=== PATIENT | male | born 1985 | race Caucasian/White ===

== ENCOUNTER → 2021-09-09 | Outpatient (CLI) | payer BC ==
[~2021-09-09] MED LIST: NORCO 325 MG-51 TAB PO; ZESTRIL 20MG TA20 MG PO
== END ==
LOC: COL.RAD 12:17
DX: C43.61 Malignant melanoma of right upper limb, including shoulder (principal)

== ENCOUNTER → 2022-05-12 | Outpatient (CLI) | payer BC | LOC: COL.RAD 13:24 | DX: C43.9 Malignant melanoma of skin, unspecified (principal) ==

== ENCOUNTER 2023-06-14 11:06 | Emergency (ER) | payer BC ==
[~2023-06-14] VITALS: Ht 180.3 cm; Wt 104.5 kg
[2023-06-14 12:08] LABS: COLLECTION METHOD CLEAN CATCH
[2023-06-14 12:21] LABS: BASO % 0.2 % (0.0-2.0); EOS % 0.1 % (0.0-4.0); GRAN # 7.6 K/mm3 (1.4-6.5); GRAN % 82.8 % (42.2-75.2); HEMATOCRIT 48.5 % (42.0-52.0); HEMOGLOBIN 16.8 g/dl (13.5-18.0); LYMPH # 0.7 K/mm3 (1.2-3.4); LYMPH % 7.2 % (20.0-51.0); MEAN CELL VOLUME 89 fl (80.0-100.0); MEAN CORPUSCULAR HEMOGLOBIN 31 pg (27-31); MEAN CORPUSCULAR HGB CONC 35 g/dl (33.0-37.0); MEAN PLATELET VOLUME 9.4 fl (7.4-10.4); MONO # 0.9 K/mm3 (0.1-0.6); MONO % 9.5 % (1.7-9.3); PLATELET COUNT 181 K/mm3 (130-400); RED BLOOD COUNT 5.48 M/mm3 (4.20-5.60); REDCELL DISTRIBUTION WIDTH-CV 11.9 % (11.5-14.5)
[2023-06-14 12:27] LABS: ALBUMIN 3.9 gm/dL (3.5-5.0); BILIRUBIN,TOTAL 0.5 mg/dL (0.2-1.2); C-REACTIVE PROTEIN 1.57 mg/dL (0.00-0.50); CALCIUM 8.8 mg/dL (8.4-10.2); CREATININE, serum 0.98 mg/dL (0.72-1.25); POTASSIUM 3.7 mmol/L (3.5-4.5)
[2023-06-14 12:36] LABS: PH 7.5 (5.0-8.5); URINE APPEARANCE Clear (CLEAR/HAZY); URINE BLOOD 1+ (NEGATIVE); URINE COLOR Yellow (YELLOW); URINE GLUCOSE Negative (NEGATIVE); URINE KETONE Negative (NEGATIVE); URINE NITRATE Negative (NEGATIVE); URINE PROTEIN(semi-quant) 2+ (NEGATIVE); URINE RBC 0-2 /hpf (0-2); URINE UROBILINOGEN 0.2 E.U/dL (0.2-1.0)
[2023-06-14 12:37] LABS: SQUAMOUS EPITHELIAL 0-2 /hpf (0-10); URINE BACTERIA Occasional /hpf (NONE SEEN)
[2023-06-14] MEDS ORDERED: ZOFRAN ODT4 MG PO (12:55)
[2023-06-14 13:45] VITALS: BP 130/78; PULSE 90; TEMP 98.8
== END 2023-06-14 13:11 | disposition home or self-care (01) ==
LOC: COL.ER 11:06
PROVIDERS: Family Medicine
DX: J10.1 Influenza due to other identified influenza virus with other respiratory manifestations (principal); R00.0 Tachycardia, unspecified
CPT/HCPCS: J7120

== ENCOUNTER 2023-10-09 08:59 | Day surgery (SDC) | payer BC ==
[~2023-10-09] VITALS: Ht 177.8 cm; Wt 106.8 kg
[~2023-10-09 08:59] MED LIST changes: +LR 1,000 ML IV SCH; +Ondansetron 4 MG/2 ML VIAL IV PRN; +ZOFRAN ODT4 MG PO
[2023-10-09] MEDS ORDERED: DEPO-TESTOS200 MG/M1 IM (09:31)
[2023-10-09] MEDS ORDERED: LEXAPRO 10MG10 MG PO (09:31)
[2023-10-09 09:53] VITALS: BP 125/86; PULSE 78; TEMP 98.4
[2023-10-09] MEDS ORDERED: Lidocaine PF 2% (20 MG/ML) 5 ML VIAL ONE (10:20)
[2023-10-09 10:45] VITALS: BP 116/79; PULSE 71; TEMP 97.1
--- NOTE | 2023-10-09 10:45 | NUR ---
The patient arrived back to [facility] from the endoscopy suite at this time. The patient appears alert and oriented and ambulated from the cart to the recliner in his room with the stand by assistance of two nurses and appeared to tolerate the activity well. Post procedure vital signs were started at this time. at bedside. Denies any further needs at this time.
[2023-10-09 11:00] VITALS: BP 119/86; PULSE 73
--- NOTE | 2023-10-09 11:00 | NUR ---
The patietn appears to be tolerating the food and drink well and requests to more cheese at this time. Vital signs appear stable. Call light is within reach.
[2023-10-09 11:15] VITALS: BP 118/78; PULSE 74
--- NOTE | 2023-10-09 11:15 | NUR ---
Dr. Nguyen has been in to speak with the patient and his regarding the findings of the proceudres. Discharge instructions were reviewed with the patient and his at this time. They both verbalized understanding and questions were answered at this time. The patient's IV to his right hand was removed and a pressure dressing was applied to the site. The nurse instructed the patient to get dressed and notify the staff when he is ready to be escorted out.
--- NOTE | 2023-10-09 11:26 | NUR ---
The patient was escorted out via wheelchair to a private vehicle by RACHEL Grullon. The patient's belongings and discharge paperwork were sent with him. The patient's is present to drive him home.
== END 2023-10-09 11:26 | disposition home or self-care (01) ==
LOC: SDCO 08:59
DX: K21.00 Gastro-esophageal reflux disease with esophagitis, without bleeding (principal); K59.00 Constipation, unspecified; R19.7 Diarrhea, unspecified
CPT/HCPCS: J2704